=== PATIENT | female | born 1960 | race Caucasian/White ===

== ENCOUNTER 2016-08-11 13:49 | Inpatient (IN) ==
[2016-08-11] MEDS ORDERED: Ipratropium/Albuterol Neb 3 ML IH ONE (14:13)
[2016-08-11] MEDS ORDERED: methylPREDNISolone 125 MG/2 ML VIAL IVP ONE (14:13)
[2016-08-11] MEDS ORDERED: Ondansetron 4 MG/2 ML VIAL IVP ONE (14:14)
--- NOTE | 2016-08-11 14:14 | Emergency Department Note ---
Disposition Clinical Impression: Acute exacerbation of chronic obstructive airways disease, Bronchitis, Hypoxia Disposition: Admitted As Inpatient Condition: Fair Referrals: Tim Dickson MD [Primary Care Provider] - Forms: ED Satisfaction Letter Time of Disposition: 19:02 SOB HPI - General Chief Complaint: ED Shortness of Breath/Dyspnea Stated Complaint: AMIRA, been treated for bronchitis Time Seen by Provider: 08/11/16 14:03 Source: patient Limitations: no limitations Nursing Notes Reviewed: Yes Vital Signs Reviewed: Yes - History of Present Illness 55-year-old female with shortness of breath cough and wheeze. Patient is a history of hypertension, hyperlipidemia, and diabetes, patient states that she was given a Z-Sukhjinder and prednisone which she just finished this one day ago. Patient can use have shortness of breath and wheeze. Worsening exertional dyspnea. Patient reports no chest pain or pressure, but does report dyspnea with light activity. He reports diffuse wheezing. Patient states she has not felt much better after steroid treatment. She has no history of COPD but is a lifelong smoker pack a day. Smokes somewhat less during this recent illness. She denies fever chills weight loss nausea vomiting diarrhea or constipation Pt Subjective Complaint: shortness of breath Onset (ago): week(s) (1) Context: occurred during exertion Severity: moderate Consistency/Duration: intermittent Improves with: nothing Associated symptoms: Reports: fever, cough, wheezing. Denies: chest pain, pain with inspiration Treatment prior to arrival: none Cough present: Yes Cough Description: Voluntary Cough Frequency: Intermittent Sputum production: Yes Sputum Amount: Scant Sputum Color: Clear - Related Data Home Medications Medication Instructions Recorded Confirmed Metformin [Glucophage] 1,000 mg PO BIDWM 01/12/15 05/31/16 Pantoprazole Sodium 40 mg PO DAILY 01/12/15 05/31/16 SitaGLIPtin [Januvia] 100 mg PO DAILY 01/12/15 05/31/16 Amlodipine [Norvasc] 5 mg PO DAILY 03/03/15 05/31/16 Aspirin [Lo-Dose Aspirin EC] 81 mg PO DAILY 08/11/16 08/11/16 Atenolol [Atenolol] 100 mg PO BID 08/11/16 08/11/16 Atorvastatin Calcium [Lipitor] 20 mg PO DAILY 08/11/16 08/11/16 Denosumab [Prolia (For Outpatient 60 mg SQ [id number] 08/11/16 08/11/16 Infusion)] GlipiZIDE [Glipizide Xl] 5 mg PO BID 08/11/16 08/11/16 Lisinopril-HCTZ 20-12.5 [Prinzide 1 tab PO DAILY 08/11/16 08/11/16 20-12.5] Sertraline [Zoloft] 100 mg PO DAILY 08/11/16 08/11/16 Previous Rx's Medication Instructions Recorded Vitamin E Acid Succinate [Vitamin 400 unit PO DAILY #60 tablet 06/02/15 E] Anastrozole [Arimidex] 1 mg PO DAILY #90 tablet 09/26/15 Allergies Allergy/AdvReac Type Severity Reaction Status Date / Time No Known Allergies Allergy Verified 08/11/16 14:42 All systems ED: reviewed and negative except as stated. Constitutional: Denies: fever, chills ENT ED: Denies: ear pain Cardiovascular: Denies: chest pain, palpitations Respiratory: Reports: as per HPI, cough, dyspnea, wheezes. Denies: hemoptysis Gastrointestinal: Denies: abdominal pain, nausea, vomiting Genitourinary: Denies: urgency, dysuria Musculoskeletal: Denies: back pain, neck pain Past Medical History - Past Medical History Attestation: Yes The following information was validated with the patient. Medical history: Reports: diabetes, hypertension - Social History Smoking Status: Current every day smoker Smokeless Tobacco Status: No Alcohol use: Reports: occasionally Drug use: Reports: none Physical Exam Constitutional: alert and oriented, in NAD, vital signs reviewed tachycardic and Neck: normal inspection, neck is supple, trachea midline Resp: Coarse inspiratory and expiratory wheezes CV: RRR, no m/g/r GI: normal inspection, Soft, NTND, BS present Back: normal inspection, no tenderness to palpation Neuro: A&O3, no gross motor or sensory deficits bilaterally Skin: No rashes, skin warm, dry, intact - General Limitations: no limitations General appearance: alert Course Course Narrative: 55-year-old female with shortness breath and cough, for purposes, she appears to be a COPD her, but she does not carry this diagnosis, I do want her doing nebs and IV Solu-Medrol, and C she gets any improvement in her symptoms. Chest pain workup, reassess - Reevaluation(s) Reevaluation #1: She did have marked improvement after DuoNeb treatments however we did try to cannulate the patient and her saturation dropped to 84% in the emergency department and she does not have oxygen at home. Therefore we will admit the patient for hypoxia and acute exacerbation of COPD Vital Signs Temperature 97.6 F 08/11/16 13:57 Pulse Rate 79 08/11/16 13:57 Respiratory Rate 18 08/11/16 13:57 Blood Pressure 161/91 08/11/16 13:57 O2 Sat by Pulse Oximetry 91 08/11/16 13:57 Temperature 97.6 F 08/11/16 13:57 Pulse Rate 84 08/11/16 17:03 Respiratory Rate 22 08/11/16 17:03 Blood Pressure 102/57 08/11/16 17:03 O2 Sat by Pulse Oximetry 85 08/11/16 17:03 Oxygen Delivery Oxygen Delivery Room Air Shortness of Breath/Dyspnea - MDM Narrative Medical decision making narrative: 55-year-old female admitted for COPD and hypoxia, bronchitis, to the hospitalist in stable condition Dr. Jw zee - Differential Diagnosis Likely: acute exacerbation of chronic obstructive airways disease, congestive heart failure, pneumonia - Medical Records Medical records reviewed: Yes I reviewed the patient's medical records. - Lab Data Lab results reviewed: Yes I reviewed the patient's lab results. Result diagrams: 08/11/16 14:40 08/11/16 14:40 Lab Results 08/11/16 08/11/16 08/11/16 Range/Units 14:40 14:40 14:40 WBC 8.6 (4.3-11.1) K/mcL RBC 4.69 (3.82-4.97) M/mcL Hgb 14.3 (11.5-15.4) g/dL Hct 43.3 (35.3-44.9) % MCV 92.3 (83.0-100.0) fL MCH 30.5 (28.0-33.3) pg MCHC 33.0 (31.6-35.5) g/dL RDW 12.5 (11.5-14.5) % Plt Count 253 (140-400) K/mcL MPV 8.9 L (9.4-12.4) fL Immature Gran % 1.6 (0-4) % Seg Neutrophils % 59.4 % Lymphocytes % 30.2 % Monocytes % 5.9 % Eosinophils % 2.4 % Basophils % 0.5 % Neutrophils # 5.1 (1.6-8.9) K/mcL Lymphocytes # 2.6 (0.6-4.6) K/mcL Monocytes # 0.5 (0.0-1.3) K/mcL Eosinophils # 0.2 (0.0-0.6) K/mcL Basophils # 0.0 (0.0-0.2) K/mcL Sodium 141 (136-145) mEq/L Potassium 3.7 (3.5-4.5) mEq/L Chloride 97 L (98-109) mEq/L Carbon Dioxide 28 (19-29) mEq/L BUN 12 (7-20) mg/dL Creatinine 0.70 (0.57-1.11) mg/dL Est GFR ( Amer) > 60 (> 60) Est GFR (Non-Af Amer) > 60 (> 60) BUN/Creatinine Ratio 17 (6-26) Glucose 117 H (70-99) mg/dL Calculated Osmolality 293 (280-300) Calcium 10.1 (8.6-10.8) mg/dL Troponin I 0.00 (0-0.03) ng/mL B-Natriuretic Peptide (0-100) pg/mL 08/11/16 Range/Units 14:40 WBC (4.3-11.1) K/mcL RBC (3.82-4.97) M/mcL Hgb (11.5-15.4) g/dL Hct (35.3-44.9) % MCV (83.0-100.0) fL MCH (28.0-33.3) pg MCHC (31.6-35.5) g/dL RDW (11.5-14.5) % Plt Count (140-400) K/mcL MPV (9.4-12.4) fL Immature Gran % (0-4) % Seg Neutrophils % % Lymphocytes % % Monocytes % % Eosinophils % % Basophils % % Neutrophils # (1.6-8.9) K/mcL Lymphocytes # (0.6-4.6) K/mcL Monocytes # (0.0-1.3) K/mcL Eosinophils # (0.0-0.6) K/mcL Basophils # (0.0-0.2) K/mcL Sodium (136-145) mEq/L Potassium (3.5-4.5) mEq/L Chloride (98-109) mEq/L Carbon Dioxide (19-29) mEq/L BUN (7-20) mg/dL Creatinine (0.57-1.11) mg/dL Est GFR ( Amer) (> 60) Est GFR (Non-Af Amer) (> 60) BUN/Creatinine Ratio (6-26) Glucose (70-99) mg/dL Calculated Osmolality (280-300) Calcium (8.6-10.8) mg/dL Troponin I (0-0.03) ng/mL B-Natriuretic Peptide 48 (0-100) pg/mL - Radiology Data Radiology results reviewed: Yes I reviewed the patient's radiology results. Chest X-Ray 08/11/16 14:13 IMPRESSION: No evidence of acute cardiopulmonary disease. D/ / 08/11/2016 15:30:03 Clive Hernández MD / elsie Interpreting Provider: Clive Hernández MD - EKG Data EKG attestation: Yes I reviewed and interpreted this EKG. EKG shows normal: Reports: sinus rhythm Rate: Reports: normal Rhythm: Reports: NSR
[2016-08-11 14:51] LABS: Basophils % 0.5 %; Eosinophils # 0.2 K/mcL (0.0-0.6); Eosinophils % 2.4 %; Hematocrit 43.3 % (35.3-44.9); Hemoglobin 14.3 g/dL (11.5-15.4); Immature Granulocytes % 1.6 % (0-4); Lymphocytes # 2.6 K/mcL (0.6-4.6); Lymphocytes % 30.2 %; Mean Corpuscular Hemoglobin 30.5 pg (28.0-33.3); Mean Corpuscular Volume 92.3 fL (83.0-100.0); Mean Platelet Volume 8.9 fL (9.4-12.4); Monocytes # 0.5 K/mcL (0.0-1.3); Monocytes % 5.9 %; Neutrophils # 5.1 K/mcL (1.6-8.9); Platelet Count 253 K/mcL (140-400); Red Blood Count 4.69 M/mcL (3.82-4.97); Red Cell Distribution Width 12.5 % (11.5-14.5); Segmented Neutrophils % 59.4 %
[2016-08-11 15:05] LABS: BUN/Creatinine Ratio 17 (6-26); Blood Urea Nitrogen 12 mg/dL (7-20); Calcium 10.1 mg/dL (8.6-10.8); Carbon Dioxide 28 mEq/L (19-29); Chloride 97 mEq/L (98-109); Glucose 117 mg/dL (70-99); Osmolality,Calculated 293 (280-300); Potassium 3.7 mEq/L (3.5-4.5); Sodium 141 mEq/L (136-145); eGFR For African Americans > 60 (> 60); eGFR For Non-African Americans > 60 (> 60)
[2016-08-11] MEDS ORDERED: *HR* Promethazine 25 MG/ML VIAL IVP PRN (20:23)
[2016-08-11] MEDS ORDERED: D5% in Water 1,000 ML IVC PRN (20:23)
[2016-08-11] MEDS ORDERED: Dextrose Gel 15 GM PO PRN ×2 (20:23)
[2016-08-11] MEDS ORDERED: *HR* Dextrose 50 % in Water (Syg) 50 ML SYRINGE IVP PRN (20:23)
[2016-08-11] MEDS ORDERED: Acetaminophen 325 MG TABLET PO PRN (20:23)
[2016-08-11] MEDS ORDERED: Albuterol 2.5 MG/3 ML NEBULIZER IH PRN (20:29)
--- NOTE | 2016-08-11 20:44 | Internal Med History&Physical ---
<LakhwinderJosePeyton Ann - Last Filed: 08/11/16 20:36> Date of Encounter: 08/11/16 Time of Encounter: 20:37 Assessment and Plan (1) Acute exacerbation of chronic obstructive airways disease Current visit: Yes Status: Acute likely due to smoking history although never previously hospitalized or medical work up for COPD CXR no acute cardiopulmonary O2 sat in ER 84%, after breathing txt and 2L NC 97% bronchodilator therapy steroids recommend outpt continuation of inhaler therapy, PFT and follow up with pulm or PCP (2) HTN (hypertension) Current visit: Yes Status: Acute well controlled BP 136/83 continue home meds Qualifiers: Hypertension type: essential hypertension Qualified Code(s): I10 - Essential (primary) hypertension (3) Depression Current visit: Yes Status: Acute continue home meds Qualifiers: Depression Type: unspecified Qualified Code(s): F32.9 - Major depressive disorder, single episode, unspecified (4) Diabetes Current visit: Yes Status: Acute well controlled glucose 117 diabetic diet insulin sliding scale will be starting steriods, monitor closely Qualifiers: Diabetes mellitus type: type 2 Diabetes mellitus complication status: without complication Diabetes mellitus mcfp insulin use: without petroleum terminal plant operator use Qualified Code(s): E11.9 - Type 2 diabetes mellitus without complications (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 Current visit: Yes Status: Acute (6) GERD (gastroesophageal reflux disease) Current visit: Yes Status: Acute PPI Qualifiers: Esophagitis presence: esophagitis presence not specified Qualified Code(s) : K21.9 - Gastro-esophageal reflux disease without esophagitis (7) Dyspnea on exertion Current visit: Yes Status: Acute (8) Breast cancer Current visit: No Status: Chronic Qualifiers: Breast location: upper outer quadrant of breast Laterality: left Qualified Code(s): C50.412 - Malignant neoplasm of upper-outer quadrant of left female breast (9) Hot flashes related to aromatase inhibitor therapy Current visit: No Status: Acute (10) Tobacco use disorder Current visit: No Status: Acute nicotine patch prn Internal Medicine - H&P: HPI Chief complaint: dyspnea Admitted From: Home Plans for Post Hospital Care: Home History of present illness: Ms. Sandoval is a 55 year old female c/o dyspnea. PMHx HTN, HLD, breast cancer, osteoprosis DM with c/o dyspnea since last saturday. She states she has minimal dyspnea on exertion at baseline, which greatly increased enabling her to only walk a few feet without getting very short of breath, cough and wheeze. Pt states she went to urgent care saturday, received Zpack on PO steroids. These helped reduce her cough, but has still experiencing dyspnea mainly on exertion. Cough is mostly dry with some white-yellow sputum. Pt denies history of COPD, but has never been evaluated for it and has a 45 year history of smoking 1 ppd. She recently cut back her smoking since her shortness of breath started to about 1/2 ppd. Pt does have some intermittent sweating that she related to her breast cancer treatment. Denies fever, chills, hemoptysis, CP, dsypnea at rest, abd pain, N/V/D, numbness thingling. Past Med Surg Social Fam HX - Past Medical History Medical history: diabetes, hypertension, osteoporosis, other (breast cancer) Psychiatric history: depression - Social History Smoking Status: Current every day smoker Packs per day: 1 Smokeless Tobacco Status: No Alcohol use: occasionally Drug use: none Occupational status: employed Current living situation: Home Activity Level: Independent ambulation - Family History Mother Living Status: Still Living Father Living Status: Still Living Internal Medicine - H&P: Meds Metformin [Glucophage] 1,000 mg PO BIDWM 01/12/15 [History] Pantoprazole Sodium 40 mg PO DAILY 01/12/15 [History] SitaGLIPtin [Januvia] 100 mg PO DAILY 01/12/15 [History] Amlodipine [Norvasc] 5 mg PO DAILY 03/03/15 [History] Vitamin E Acid Succinate [Vitamin E] 400 unit PO DAILY #60 tablet 06/02/15 [Rx] Anastrozole [Arimidex] 1 mg PO DAILY #90 tablet 09/26/15 [Rx] Aspirin [Lo-Dose Aspirin EC] 81 mg PO DAILY 08/11/16 [History] Atenolol [Atenolol] 100 mg PO BID 08/11/16 [History] Atorvastatin Calcium [Lipitor] 20 mg PO DAILY 08/11/16 [History] Denosumab [Prolia (For Outpatient Infusion)] 60 mg SQ [id number] 08/11/16 [History ] GlipiZIDE [Glipizide Xl] 5 mg PO BID 08/11/16 [History] Lisinopril-HCTZ 20-12.5 [Prinzide 20-12.5] 1 tab PO DAILY 08/11/16 [History] Sertraline [Zoloft] 100 mg PO DAILY 08/11/16 [History] Allergies No Known Allergies Allergy (Verified 08/11/16 14:42) All Systems PM: A 10-system review of systems was performed and is negative for pertinent findings except as documented above in the HPI. - Constitutional Constitutional: excessive sweating (chronicly), no chills, no fever(s), no night sweats - EENT Eyes: no change in vision, no discharge, no pain, no photophobia Ears: no ear discharge, no ear pain, no tinnitus Nose, mouth and throat: no dysphagia, no nasal discharge, no neck pain, no sore throat - Cardiovascular Cardiovascular ROS IM: no chest pain, no diaphoresis, no dyspnea, no lightheadedness, no palpitations, no syncope - Respiratory Respiratory: cough, dyspnea, dyspnea on exertion, wheezing, no hemoptysis - Gastrointestinal Gastrointestinal: no abdominal pain, no diarrhea, no hematemesis, no hematochezia, no melena, no nausea, no vomiting - Genitourinary Genitourinary: no change in urinary stream, no dysuria, no flank pain, no hematuria - Musculoskeletal Musculoskeletal ROS IM: no numbness, no tingling - Integumentary Integumentary IM: no rash, no unusual bruising - Neurological Neurological ROS: no confusion, no convulsions, no focal weakness, no numbness, no tingling, no tremor(s) - Constitutional Vitals: Temp Pulse Resp BP Pulse Ox 97.9 F 75 16 136/83 94 08/11/16 17:48 08/11/16 17:48 08/11/16 17:48 08/11/16 17:48 08/11/16 17:48 General appearance: Present: A&O X 3, no acute distress, answers questions appropriately - Head Head exam: Present: atraumatic, normocephalic - Eye Eye exam: Present: EOMI, PERRL, conjuntiva pink, sclera anicteric Pupils: Present: PERRL - Neck Neck exam general surgery: Present: supple, trachea midline. Absent: lymphadenopathy - Respiratory Respiratory exam: Present: decreased breath sounds, wheezes. Absent: accessory muscle use - Expanded Respiratory Exam Location: decreased breath sounds: Left, Right, Lower, wheezes: Left, Right, Lower, Upper (minimal end expiratory, scattered posterior) - Cardiovascular Cardiovascular exam: Present: RRR, +S1, +S2. Absent: diastolic murmur, gallop, rubs, systolic murmur - GI/Abdominal GI/Abdominal exam: Present: normal bowel sounds, soft, no peritoneal signs. Absent: distended, tenderness - Extremities Exam Extremities exam: Present: warm, radial pulses palpable and symetrical. Absent : calf tenderness, cyanotic, pedal edema - Neurological Exam Neurological exam: Present: CN II-XII intact, oriented X3, no focal deficits. Absent: pronater drift, facial droop, speech deficit - Skin Skin exam: Present: diaphoretic (slightly), intact, normal color, warm. Absent : cyanosis Internal Med - H&P Results - Labs CBC & Chem 7: 08/11/16 14:40 08/11/16 14:40 <Parvez Ibrahim - Last Filed: 08/11/16 21:09> Date of Encounter: 08/11/16 Internal Medicine - H&P: HPI History of present illness: Ms. Sandoval is a 55 year old female All Systems PM: A 10-system review of systems was performed and is negative for pertinent findings except as documented above in the HPI. - Constitutional Vitals: Temp Pulse Resp BP Pulse Ox 97.9 F 75 16 136/83 94 08/11/16 17:48 08/11/16 17:48 08/11/16 17:48 08/11/16 17:48 08/11/16 17:48 Internal Med - H&P Results - Labs CBC & Chem 7: 08/11/16 14:40 08/11/16 14:40 - Attending Attestation I examined this patient and my medical decision-making was reviewed with the DAMAGE CUTTER/PA/Advanced Practice Nurse/Resident Physician. I agree with the documented findings, disposition and treatment plan as described except to the extent set forth below. COPD exacerbation. Continue with systemic steroids, nebulizer therapy. Possible discharge tomorrow. Discussed with patient. Will need to follow up with pulmonology as outpatient.
[2016-08-11] MEDS ORDERED: Nicotine 21 MG PATCH.TD24 TD PRN (20:59)
[2016-08-11] MEDS: Insulin LISPRO 300 UNITS/3 ML VIAL SQ SCH (22:05)
[2016-08-11] MEDS: *HR* Heparin 5,000 UNIT/ML VIAL SQ SCH (22:07)
[2016-08-11] MEDS: Ipratropium/Albuterol Neb 3 ML IH SCH (23:02)
[2016-08-11] MEDS: MethylPREDNISolone 40 MG/ML VIAL IVP SCH (23:59)
[2016-08-12] MEDS ORDERED: Insulin LISPRO 300 UNITS/3 ML VIAL SQ SCH
[2016-08-12] MEDS: Ipratropium/Albuterol Neb 3 ML IH SCH ×4 (04:06→22:43)
[2016-08-12] MEDS: *HR* Heparin 5,000 UNIT/ML VIAL SQ SCH ×2 (05:11→17:07)
[2016-08-12 05:56] LABS: Hematocrit 38.1 % (35.3-44.9); Hemoglobin 13.1 g/dL (11.5-15.4); Mean Corpuscular HGB Conc 34.4 g/dL (31.6-35.5); Mean Corpuscular Hemoglobin 31.5 pg (28.0-33.3); Mean Corpuscular Volume 91.6 fL (83.0-100.0); Mean Platelet Volume 9.3 fL (9.4-12.4); Platelet Count 245 K/mcL (140-400); Red Blood Count 4.16 M/mcL (3.82-4.97); Red Cell Distribution Width 12.5 % (11.5-14.5)
[2016-08-12 06:21] LABS: BUN/Creatinine Ratio 21 (6-26); Blood Urea Nitrogen 16 mg/dL (7-20); Calcium 9.3 mg/dL (8.6-10.8); Carbon Dioxide 23 mEq/L (19-29); Chloride 94 mEq/L (98-109); Glucose 308 mg/dL (70-99); Osmolality,Calculated 289 (280-300); Potassium 4.2 mEq/L (3.5-4.5); Sodium 133 mEq/L (136-145); eGFR For African Americans > 60 (> 60); eGFR For Non-African Americans > 60 (> 60)
[2016-08-12] MEDS: Insulin LISPRO 300 UNITS/3 ML VIAL SQ SCH ×4 (08:22→20:59)
[2016-08-12] MEDS: MethylPREDNISolone 40 MG/ML VIAL IVP SCH ×2 (08:22→17:07)
[2016-08-12] MEDS: Lisinopril-HCTZ 20-12.5mg TABLET PO SCH (08:23)
[2016-08-12] MEDS: Pantoprazole 40 MG VIAL IVP SCH (08:23)
[2016-08-12] MEDS: Aspirin Enteric Coated 81 MG Tablet PO SCH (08:23)
[2016-08-12] MEDS: amLODIPine 5 MG TABLET PO SCH (08:23)
--- NOTE | 2016-08-12 14:01 | Electrocardiograph Report ---
[place] [id number] Test Date: 2016-08-11 Pat Name: Janki Sandoval Department: 104 Room: 3B23 Gender: F Tennis Director: : 1960 Requested By: Jovi Mart Order Number: [id number] Reading MD: Raymond Carrasco MD Measurements Intervals [place] Rate: 73 P: 73 ME: 160 QRS: 39 QRSD: 86 T: 63 QT: 396 QTc: 421 Interpretive Statements SINUS RHYTHM Electronically Signed On 08-12-2016 14:00:02 EDT by Raymond Carrasco MD
--- NOTE | 2016-08-12 17:23 | Internal Med Progress Note ---
Date of Encounter: 08/12/16 Time of Encounter: 09:40 - Assessment and plan (1) Acute exacerbation of chronic obstructive airways disease Current Visit: Yes Status: Acute (2) Hypoxia Current Visit: Yes Status: Acute (3) HTN (hypertension) Current Visit: Yes Status: Acute Assessment and plan: Chronic. Continue home medications. Qualifiers: Hypertension type: essential hypertension Qualified Code(s): I10 - Essential (primary) hypertension (4) Diabetes Current Visit: Yes Status: Acute Assessment and plan: A1c was 6.2% in May. She has been hyperglycemic since she has been here. She is also getting steroids. Diabetic diet Sliding scale insulin Accu-Cheks before meals at bedtime Qualifiers: Diabetes mellitus type: type 2 Diabetes mellitus complication status: without complication Diabetes mellitus manager terminal insulin use: without manager terminal use Qualified Code(s): E11.9 - Type 2 diabetes mellitus without complications (5) GERD (gastroesophageal reflux disease) Current Visit: Yes Status: Chronic Assessment and plan: Chronic. Continue home medications. Qualifiers: Esophagitis presence: esophagitis presence not specified Qualified Code(s) : K21.9 - Gastro-esophageal reflux disease without esophagitis (6) Breast cancer Current Visit: No Status: Chronic Assessment and plan: Patient was diagnosed with breast cancer 2 years ago. She will lumpectomy and local lymph nodes removed as well. She did no chemotherapy no radiation. She takes anastrozole. Continue home medications Qualifiers: Breast location: upper outer quadrant of breast Laterality: left Qualified Code(s): C50.412 - Malignant neoplasm of upper-outer quadrant of left female breast (7) Tobacco use disorder Current Visit: No Status: Acute Assessment and plan: Patient has cutback to a half pack day smoking. We discussed multiple smoking cessation options. She has chosen Chantix. She is using a NicoDerm patch during admission. Chantix prescription for discharge. - Subjective Interval history: Patient is a pleasant woman who reports difficulty in breathing for 1 week. She was seen at urgent care and given an antibiotic and steroid did not help her. She reports dyspnea on exertion for about 2 months, most noticeably at work. She has to walk about half a mile to get to where she works every day. She reports cough with yellow sputum 1 week and increased mucus production for a week. She has cut back to smoking a half a pack a day. And would like to stop. After much discussion she has decided to do Chantix. She also would like to have a week off work, which I do not think is unreasonable considering her situation. She failed her 6 minute walk test today but her sats dropped to 87% and she qualified for home O2. We made the decision together to have her stay another night for observation and steroids and breathing treatments to see if she improves tomorrow. Patient was agreeable to this solution. - Constitutional Vitals: Temp Pulse Resp BP Pulse Ox 97.5 F L 73 16 158/81 99 08/12/16 15:48 08/12/16 15:48 08/12/16 15:48 08/12/16 15:48 08/12/16 15:48 General appearance: Present: A&O X 3, no acute distress, answers questions appropriately - Head Head exam: Present: normal inspection - Eye Eye exam: Present: normal appearance, conjuntiva pink - ENT ENT exam: Present: mucous membranes moist, normal exam - Neck Neck exam general surgery: Present: normal inspection. Absent: lymphadenopathy , tenderness - Respiratory Respiratory exam: Present: decreased breath sounds. Absent: rales, respiratory distress, stridor, wheezes - Cardiovascular Cardiovascular exam: Present: RRR, +S1, +S2. Absent: diastolic murmur, systolic murmur - GI/Abdominal GI/Abdominal exam: Present: normal bowel sounds, soft. Absent: hepatomegaly, mass - Extremities Exam Extremities exam: Present: normal inspection, warm, radial pulses palpable and symetrical. Absent: pedal edema, tenderness - Neurological Exam Neurological exam: Present: alert, oriented X3, no focal deficits Internal Medicine: Result - Labs CBC & Chem 7: 08/12/16 05:38 08/12/16 05:38 Labs: Short CBC 08/12/16 Range/Units 05:38 WBC 9.5 (4.3-11.1) K/mcL Hgb 13.1 (11.5-15.4) g/dL Hct 38.1 (35.3-44.9) % Plt Count 245 (140-400) K/mcL BMP 08/12/16 05:38 Sodium 133 L D Potassium 4.2 Chloride 94 L Carbon Dioxide 23 BUN 16 Creatinine 0.75 Glucose 308 H Calcium 9.3 Cardiac Enzymes 08/12/16 Range/Units 05:38 Troponin I 0.00 (0-0.03) ng/mL Consult Discharge Plan - Plan Referrals: Tim Dickson MD [Primary Care Provider] -
[2016-08-13] MEDS: MethylPREDNISolone 40 MG/ML VIAL IVP SCH ×2 (00:25→08:30)
[2016-08-13] MEDS: Ipratropium/Albuterol Neb 3 ML IH SCH ×3 (03:32→15:31)
[2016-08-13 04:48] LABS: Basophils % 0.1 %; Hematocrit 38.1 % (35.3-44.9); Hemoglobin 12.8 g/dL (11.5-15.4); Immature Granulocytes % 1.5 % (0-4); Lymphocytes # 0.7 K/mcL (0.6-4.6); Lymphocytes % 8.4 %; Mean Corpuscular HGB Conc 33.6 g/dL (31.6-35.5); Mean Corpuscular Hemoglobin 31.1 pg (28.0-33.3); Mean Corpuscular Volume 92.7 fL (83.0-100.0); Mean Platelet Volume 9.2 fL (9.4-12.4); Monocytes # 0.3 K/mcL (0.0-1.3); Monocytes % 3.3 %; Neutrophils # 7.1 K/mcL (1.6-8.9); Platelet Count 200 K/mcL (140-400); Red Blood Count 4.11 M/mcL (3.82-4.97); Red Cell Distribution Width 12.3 % (11.5-14.5); Segmented Neutrophils % 86.7 %
[2016-08-13 05:11] LABS: BUN/Creatinine Ratio 22 (6-26); Blood Urea Nitrogen 15 mg/dL (7-20); Carbon Dioxide 24 mEq/L (19-29); Chloride 98 mEq/L (98-109); Glucose 305 mg/dL (70-99); Osmolality,Calculated 290 (280-300); Potassium 4.2 mEq/L (3.5-4.5); Sodium 134 mEq/L (136-145); eGFR For African Americans > 60 (> 60); eGFR For Non-African Americans > 60 (> 60)
[2016-08-13] MEDS: *HR* Heparin 5,000 UNIT/ML VIAL SQ SCH (05:25)
[2016-08-13] MEDS: Pantoprazole 40 MG VIAL IVP SCH (08:19)
[2016-08-13] MEDS: Insulin LISPRO 300 UNITS/3 ML VIAL SQ SCH ×2 (08:19→12:44)
[2016-08-13] MEDS: amLODIPine 5 MG TABLET PO SCH (08:20)
[2016-08-13] MEDS: Aspirin Enteric Coated 81 MG Tablet PO SCH (08:20)
[2016-08-13] MEDS: Lisinopril-HCTZ 20-12.5mg TABLET PO SCH (08:20)
--- NOTE | 2016-08-13 14:01 | Discharge Summary ---
Date of Encounter: 08/13/16 Time of Encounter: 12:00 - Discharge Diagnosis (1) Acute exacerbation of chronic obstructive airways disease Priority: Primary Status: Acute Comments: Pt denies history of COPD prior to this visit. She is a smoker and has cut back to 1/2 PPD over the last 2 weeks. She has never been worked up for COPD. She has never required 02 prior to this visit. CXR negative for actue cardiopulmonary disease. She has maintained her sats at 100% on 2L, however, she desats below 87% on room air during 6 min walk. She has been treated with nebulizers and steroids. She will be sent home with albuterol inhaler with spacer, home 02 and po steroids Chantix rx (2) Hypoxia Priority: Secondary Status: Acute Comments: Pt will be discharged on home 02 for hypoxia. Pt has been able to maintain her sats on 02, however, she desats on room air. (3) HTN (hypertension) Priority: Secondary Status: Acute Comments: Well controlled. Continue home medications. Qualifiers: Hypertension type: essential hypertension Qualified Code(s): I10 - Essential (primary) hypertension (4) Diabetes Priority: Secondary Status: Chronic Comments: Chronic. Continue home medications. Qualifiers: Diabetes mellitus type: type 2 Diabetes mellitus complication status: without complication Diabetes mellitus ferry terminal supervisor insulin use: without ferry terminal supervisor use Qualified Code(s): E11.9 - Type 2 diabetes mellitus without complications (5) GERD (gastroesophageal reflux disease) Priority: Secondary Status: Chronic Comments: Chronic. Resume home medications. Qualifiers: Esophagitis presence: esophagitis presence not specified Qualified Code(s) : K21.9 - Gastro-esophageal reflux disease without esophagitis (6) Breast cancer Priority: Secondary Status: Chronic Comments: Continue home medications Qualifiers: Breast location: upper outer quadrant of breast Laterality: left Qualified Code(s): C50.412 - Malignant neoplasm of upper-outer quadrant of left female breast (7) Tobacco use disorder Priority: Secondary Status: Acute Comments: Pt and I have discussed smoking cessation. She has decided on Chantix. Chantix Rx starter pack for discharge. - Discharge Medications Prescriptions: Albuterol Sulfate [Albuterol Inhaler] 2 puff IH Q4HR PRN #1 hfa.aer.ad PRN Reason: Wheezing PredniSONE 10 mg PO DAILY #31 tablet Varenicline Tartrate [Chantix] 1 each PO DAILY #1 tab.ds.pk Home Medications: Metformin [Glucophage] 1,000 mg PO BIDWM 01/12/15 [History] Pantoprazole Sodium 40 mg PO DAILY 01/12/15 [History] SitaGLIPtin [Januvia] 100 mg PO DAILY 01/12/15 [History] Amlodipine [Norvasc] 5 mg PO DAILY 03/03/15 [History] Vitamin E Acid Succinate [Vitamin E] 400 unit PO DAILY #60 tablet 06/02/15 [Rx] Anastrozole [Arimidex] 1 mg PO DAILY #90 tablet 09/26/15 [Rx] Aspirin [Lo-Dose Aspirin EC] 81 mg PO DAILY 08/11/16 [History] Atenolol 100 mg PO BID 08/11/16 [History] Atorvastatin Calcium [Lipitor] 20 mg PO DAILY 08/11/16 [History] Denosumab [Prolia (For Outpatient Infusion)] 60 mg SQ [id number] 08/11/16 [History ] GlipiZIDE [Glipizide Xl] 5 mg PO BID 08/11/16 [History] Lisinopril-HCTZ 20-12.5 [Prinzide 20-12.5] 1 tab PO DAILY 08/11/16 [History] Sertraline [Zoloft] 100 mg PO DAILY 08/11/16 [History] Albuterol Sulfate [Albuterol Inhaler] 2 puff IH Q4HR PRN #1 hfa.aer.ad 08/13/16 [Rx] PredniSONE 10 mg PO DAILY #31 tablet 08/13/16 [Rx] Varenicline Tartrate [Chantix] 1 each PO DAILY #1 tab.ds.pk 08/13/16 [Rx] Allergies/Adverse Reactions: Allergies No Known Allergies Allergy (Verified 08/11/16 14:42) Date of admission: 08/13/16 11:14 Primary care physician: Tim Dickson MD Consults: 08/13/16 11:36 Consult to Die Trouble Shooter [CONS] Routine Reason for SW Consult: QUALIFIED FOR HOME O2 Discharging clinician: Mary Contreras Anticipated date of discharge: 08/13/16 - Patient Status Disposition: Home, Self-Care Condition: Good Functional capacity at discharge: independent ambulation Overall status at discharge: patient is progressing back to baseline - Discharge Instructions Follow Up With: Tim Dickson MD [Primary Care Provider] - 08/22/16 10:00 am Additional Instructions: Start your new medications today and take as directed. Follow up with your primary care dr as scheduled or within the next week Your blood sugar will be elevated while you are on the Prednisone. WEar your oxygen as needed. Return to the ED for any other problems or concerns or if your symptoms become worse. Return to work on 2016 - Diet and Activity Activity: increase activity as tolerated, wear oxygen at all times Diet: advance to your usual diet Hospital course: Ms. Sandoval is a 55 year old female with a history of diabetes, depression, breast cancer, GERD. Patient reported to the emergency department with approximately 2 month history of shortness of breath, dyspnea on exertion. Patient states that she has had difficulty walking to her job for the last 2 months. She states it is not a half mile walk from her car to where she works. She has a recent history of increased mucus production and productive cough. She failed outpatient oral antibiotic and steroid therapy. She was admitted for evaluation of COPD. Patient has not had diagnosis of COPD prior to now. She was treated with steroids and nebulizers and oxygen. The last 2 days she has qualified for home O2 based on her sats dropping below 88% when walking. I kept her for an extra day hoping that she would not need to go home with home O2 and then another day of steroids would help open her up. Patient speaks easily in normal sentences, and she does ambulate around her room without difficulty. Her lungs are diminished but clear posteriorly in the upper lung navarrete, bilateral bases with rhonchi. She had a lengthy discussion about smoking cessation. It lasted approximately 10 minutes today again. She has been using NicoDerm patch while in the hospital, but she states that Chantix would be a better option for her when she is home. She will be sent home with home O2 prednisone taper albuterol inhaler and a prescription for Chantix starter pack. She has been afebrile, without leukocytosis, hemodynamically stable, and all of her labs within normal limits. Her glucose has been elevated , most likely to stress and steroid use. She will continue all of her other home medications and follow-up with her primary care physician as needed. I also will send her home with a work excuse for 1 more week off work. Patient is stable for discharge. Time spent discussing smoking cessation with patient: more than 10 minutes - Time Spent with Patient Total time spent providing and/or coordinating discharge services: Less than 30 minutes - Constitutional Vitals: Temp Pulse Resp BP Pulse Ox 98.0 F 81 16 171/89 95 08/13/16 11:42 08/13/16 12:49 08/13/16 11:42 08/13/16 12:49 08/13/16 11:42 General appearance: Present: A&O X 3, no acute distress, answers questions appropriately - Head Head exam: Present: normal inspection - Neck Neck exam general surgery: Absent: lymphadenopathy, tenderness - Respiratory Respiratory exam: Present: decreased breath sounds, rhonchi. Absent: wheezes - GI/Abdominal GI/Abdominal exam: Present: normal bowel sounds, soft. Absent: tenderness - Extremities Exam Extremities exam: Present: normal capillary refill, warm, radial pulses palpable and symetrical. Absent: tenderness - Neurological Exam Neurological exam: Present: alert, oriented X3, no focal deficits, strengths equal and symetr throughout
[2016-08-13 15:34] VITALS: BP 146/75
== END 2016-08-13 18:00 | disposition home or self-care (01) | DRG 192 ==
LOC: EMEROO 13:49 → 3BNU 13:49
PROVIDERS: ADMIT Registered Nurse; ATTEND Registered Nurse

== ENCOUNTER 2021-03-18 12:58 | Observation (INO) ==
[2021-03-18] MEDS ORDERED: Ampicillin/Sulbactam 3,000 MG in 0.9 % Sodium Chloride 100 ML IVPB ONE (14:05)
[2021-03-18] MEDS ORDERED: Morphine Sulfate 2 MG/ML SYRINGE IVP ONE (14:05)
[2021-03-18] MEDS ORDERED: Ampicillin/Sulbactam 3,000 MG in 0.9 % Sodium Chloride Mini Bag 100 ML IVPB ONE (14:28)
[2021-03-18 15:13] LABS: BUN/Creatinine Ratio 15 (6-26); Blood Urea Nitrogen 8 mg/dL (8-23); Calcium 9.1 mg/dL (8.6-10.3); Carbon Dioxide 26 mEq/L (23-29); Chloride 97 mEq/L (98-107); Glucose 191 mg/dL (70-105); Osmolality,Calculated 279 (280-300); Potassium 3.8 mEq/L (3.5-5.1); Sodium 133 mEq/L (136-145); eGFR For African Americans > 60 (> 60); eGFR For Non-African Americans > 60 (> 60)
[2021-03-18 15:56] LABS: Basophils # 0.1 K/mcL (0.0-0.2); Basophils % 0.4 %; Eosinophils # 0.1 K/mcL (0.0-0.6); Eosinophils % 0.5 %; Hematocrit 37.3 % (35.3-44.9); Hemoglobin 12.2 g/dL (11.5-15.4); Immature Granulocytes % 0.8 % (0-4); Lymphocytes # 1.6 K/mcL (0.6-4.6); Lymphocytes % 12.8 %; Mean Corpuscular HGB Conc 32.7 g/dL (31.6-35.5); Mean Corpuscular Hemoglobin 29.2 pg (28.0-33.3); Mean Corpuscular Volume 89.2 fL (83.0-100.0); Mean Platelet Volume 9.1 fL (9.4-12.4); Monocytes # 0.7 K/mcL (0.0-1.3); Monocytes % 5.6 %; Platelet Count 280 K/mcL (140-400); Red Blood Count 4.18 M/mcL (3.82-4.97); Red Cell Distribution Width 12.8 % (11.5-14.5); Segmented Neutrophils % 79.9 %; White Blood Count 12.5 K/mcL (4.3-11.1)
[2021-03-18] MEDS ORDERED: *HR* Succinylcholine 200 MG/10 ML VIAL IVP ONE (16:49)
[2021-03-18] MEDS ORDERED: Lidocaine -MPF 2% 5 ML VIAL ONE (16:49)
[2021-03-18] MEDS ORDERED: *HR* Propofol 200 MG/20 ML VIAL IVP ONE (16:49)
[2021-03-18] MEDS ORDERED: *HR* FentaNYL (PF) 100 MCG/2 ML VIAL ONE ×2 (16:49→17:32)
[2021-03-18] MEDS ORDERED: Lidocaine HCL 4 ML Topical Solution (Laryng-O-Jet Kit Sterile Pak) TP ONE (16:49)
[2021-03-18] MEDS ORDERED: Ondansetron 4 MG/2 ML VIAL IVP PRN ×2 (16:51→18:34)
[2021-03-18] MEDS ORDERED: *HR* FentaNYL (PF) 100 MCG/2 ML VIAL IVP PRN (16:51)
[2021-03-18] MEDS ORDERED: Nitroglycerin 0.4 MG TAB.SUBL SL PRN (16:51)
[2021-03-18] MEDS ORDERED: Naloxone 0.4 MG/ML INJ IVP PRN (16:51)
[2021-03-18] MEDS ORDERED: *HR* HYDROmorphone (PF) 1 MG/ML SYRINGE IVP PRN (16:51)
[2021-03-18] MEDS ORDERED: Albuterol 2.5 MG/3 ML NEBULIZER IH PRN (16:51)
[2021-03-18] MEDS ORDERED: cefOXitin 1,000 MG, Sodium Chloride IRRigation 1,000 ML IR ONE (17:00)
[2021-03-18] MEDS ORDERED: Ondansetron 4 MG/2 ML VIAL ONE (17:26)
[2021-03-18] MEDS ORDERED: *HR* Metoprolol 5 MG/5 ML VIAL IVP PRN (18:34)
[2021-03-18] MEDS ORDERED: Albuterol 2.5 MG/3 ML NEBULIZER IH ONE (18:34)
[2021-03-18] MEDS ORDERED: Dextrose Gel 15 GM/37.5 ML TUBE PO PRN ×2 (18:34)
[2021-03-18] MEDS ORDERED: *HR* Dextrose 50 % in Water (Syg) 50 ML SYRINGE IVP PRN (18:34)
[2021-03-18] MEDS ORDERED: D5% in Water 1,000 ML IVC PRN (18:34)
[2021-03-18] MEDS: *HR* OxyCODONE/APAP 5/325 TABLET PO PRN (19:41)
[2021-03-18] MEDS: 0.9 % Sodium Chloride 1,000 ML IVC SCH (19:42)
[2021-03-18] MEDS: Lisinopril-HCTZ 20-12.5mg TABLET PO SCH (20:53)
[2021-03-19] MEDS: Piperacillin/Tazobactam 3.375 GM in 0.9 % Sodium Chloride Mini Bag 100 ML IVPB SCH ×4 (00:34→23:41)
[2021-03-19] MEDS: *HR* OxyCODONE/APAP 5/325 TABLET PO PRN ×4 (00:36→23:31)
[2021-03-19 02:27] LABS: Basophils % 0.2 %; Immature Granulocytes % 0.9 % (0-4); Lymphocytes # 0.9 K/mcL (0.6-4.6); Lymphocytes % 8.5 %; Mean Corpuscular HGB Conc 32.4 g/dL (31.6-35.5); Mean Corpuscular Volume 89.7 fL (83.0-100.0); Mean Platelet Volume 9.1 fL (9.4-12.4); Monocytes # 0.4 K/mcL (0.0-1.3); Monocytes % 3.2 %; Neutrophils # 9.7 K/mcL (1.6-8.9); Platelet Count 243 K/mcL (140-400); Red Blood Count 3.79 M/mcL (3.82-4.97); Segmented Neutrophils % 87.2 %; White Blood Count 11.1 K/mcL (4.3-11.1)
[2021-03-19 02:30] LABS: BUN/Creatinine Ratio 18 (6-26); Blood Urea Nitrogen 11 mg/dL (8-23); Calcium 8.7 mg/dL (8.6-10.3); Carbon Dioxide 26 mEq/L (23-29); Chloride 99 mEq/L (98-107); Glucose 272 mg/dL (70-105); Osmolality,Calculated 287 (280-300); Potassium 3.9 mEq/L (3.5-5.1); Sodium 134 mEq/L (136-145); eGFR For African Americans > 60 (> 60); eGFR For Non-African Americans > 60 (> 60)
[2021-03-19] MEDS: Insulin LISPRO 300 UNITS/3 ML VIAL SUBQ SCH ×3 (08:22→16:38)
[2021-03-19] MEDS: *HR* Metformin 500 MG TABLET PO SCH ×2 (08:32→16:37)
[2021-03-19] MEDS: Lisinopril-HCTZ 20-12.5mg TABLET PO SCH ×2 (08:33→21:01)
[2021-03-19] MEDS: amLODIPine 5 MG TABLET PO SCH (08:33)
[2021-03-19] MEDS: 0.9 % Sodium Chloride 1,000 ML IVC SCH (15:06)
[2021-03-19] MEDS: Psyllium 1 PACKET POWD.PACK PO SCH (16:35)
[2021-03-20] MEDS: Psyllium 1 PACKET POWD.PACK PO SCH ×2 (07:05→08:28)
[2021-03-20] MEDS: Insulin LISPRO 300 UNITS/3 ML VIAL SUBQ SCH (08:27)
[2021-03-20] MEDS: Lisinopril-HCTZ 20-12.5mg TABLET PO SCH (08:28)
[2021-03-20] MEDS: amLODIPine 5 MG TABLET PO SCH (08:28)
[2021-03-20] MEDS: *HR* Metformin 500 MG TABLET PO SCH (08:28)
[2021-03-20] MEDS: Piperacillin/Tazobactam 3.375 GM in 0.9 % Sodium Chloride Mini Bag 100 ML IVPB SCH (08:29)
[2021-03-20 11:00] VITALS: BP 135/82; PULSE 76; TEMP 97.7; O2SAT 93
[2021-03-20] MEDS: 0.9 % Sodium Chloride 1,000 ML IVC SCH (11:02)
[2021-03-20] MEDS: *HR* OxyCODONE/APAP 5/325 TABLET PO PRN (11:06)
== END 2021-03-20 11:47 | disposition home or self-care (01) ==
LOC: EMEROOARM 12:58 → 3ANU 12:58
PROVIDERS: ADMIT Surgery; ATTEND Surgery